=== PATIENT | female | born 1975 | race Caucasian/White ===

== ENCOUNTER 2024-05-16 16:48 | Emergency (ER) | payer OTHER, SELFPAY ==
[2024-05-16 17:11] VITALS: BP 131/75; PULSE 77; RESP 16; TEMP 36.4; O2SAT 100
--- NOTE | 2024-05-16 20:11 | ED_ITS ---
HPI - General Adult General Chief complaint: Extremity Injury, Upper Stated complaint: Left wrist pain Time Seen by Provider: 05/16/24 17:14 Source: patient, RN notes reviewed and old records reviewed Mode of arrival: ambulatory Limitations: no limitations History of Present Illness HPI narrative: 48-year-old female to [facility] with complaint left wrist pain for 2 weeks that is becoming progressively worse. Patient denies injury, surgical history, prior injury, numbness, tingling, weakness decreased ROM, swelling, pertinent medical history. Patient resting comfortably in no acute distress. Patient sta yury she recently was moved to the area does not have a primary care provider. Related Data Home Medications Medication Instructions Recorded Confirmed No Home Medications 05/16/24 05/16/24 Allergies Allergy/AdvReac Type Severity Reaction Status Date / Time prednisone Allergy Jittery Verified 05/16/24 17:10 Sulfa (Sulfonamide Allergy Hives Verified 05/16/24 17:09 Antibiotics) Review of Systems Review of Systems: All systems reviewed & are unremarkable except as noted in HPI and below Constitutional: Constitutional: Reports no additional constitutional c omplaints Eyes: Eyes: Reports no additional eye complaints ENT: Reports system reviewed and no additional complaints, except as documented Cardiovascular: Cardiovascular: Reports no additional cardiovascular complaints, Denies chest pain and Denies dyspnea Respiratory: Respiratory: Reports no additional respiratory complaints, Denies cough and Denies dyspnea Musculoskeletal: Musculoskeletal: Reports as per HPI, Reports deformity, Reports arthralgias ( left wrist), Denies joint swelling, Denies limited range of motion, Denies muscle weakness, Denies numbness and Denies radiating pain into limb Neurologic: Reports system reviewed and no additional complaints, except as documented Psychiatric: Psychiatric: Reports no additional psychiatric complaints PMFSH Comments At the time of my signature, I reviewed and agree with the nursing past medical, surgical, social, and family history. There is no relevant family history pertinent to the patient complaint. Exam Const: General: cooperative, healthy appearing, comfortable, no acute distress, well developed, alert, well groomed and well nourished Nutritional Appearance: well nourished Orientation/consciousness: patient oriented x3 Limitations: no limitations HENMT: Head: normal to inspection Ears: external ears normal Face/Nose/Sinus: Normal external nose present, Normal nares present, normal facial exam, No erythema and No edema Face and sinus: normal facial exam, no erythema and no edema Mouth: Yes Normal oral and palatal mucosa present Eyes: General: appearance normal, both eyes and all related structures Neck: Neck: normal visual inspection, full ROM and no meningeal signs Chest: Chest palpation & inspection: normal inspection of the chest Resp: Effort & Inspection: normal respiratory effort and able to speak in complete sentences Cardio: Jugular venous distension: no JVD Rate: regular rate Back/Spine/Pelvis: Cervical Spine: cervical ROM normal Skin: General skin exam: normal color, no rashes or lesions noted and turgor normal Neuro: General: patient oriented x3, gait normal, moves all extremities and no meningeal signs Speech: normal speech Gait exam (Neuro): Normal gait present Extrem: General: full ROM and capillary refill normal Left upper extremity: wrist normal ROM, normal vascular exam, normal Ranjit's test and Tinel's negative; no swelling, no unusual warmth, no abrasions, no lacerations, no ecchymosis, no crepitus, no deformity and Phalen's positive Psych: Appearance: grossly normal and well kempt Course Course Emergency Course: Some parts of this dictation were generated by voice recognition software and may contain typographical and/or grammatical inaccuracies. Level of Care: Express Care Visit Vital Signs Vital signs: Vital Signs Temperature 36.4 C L 05/16/24 17:11 Pulse Rate 77 05/16/24 17:11 Respiratory Rate 16 05/16/24 17:11 Blood Pressure 131/75 05/16/24 17:11 Pulse Oximetry 100 05/16/24 17:11 Oxygen Delivery Room Air 05/16/24 17:11 Temperature 36.4 C L 05/16/24 17:11 Pulse Rate 77 05/16/24 17:11 Respiratory Rate 16 05/16/24 17:11 Blood Pressure 131/75 05/16/24 17:11 Pulse Oximetry 100 05/16/24 17:11 Oxygen Delivery Room Air 05/16/24 17:11 reviewed Medical Decision Making MDM Narrative Medical decision making narrative: 48-year-old female to [facility] with complaint left wrist pain for 2 weeks that is becoming progressively worse. Patient denies injury, surgical history, prior injury, numbness, tingling, weakness decreased ROM, swelling, pertinent medical history. Patient resting comfortably in no acute distress. Patient states she recently was moved to the area does not have a primary care provider. Patient is sitting comfortably in exam room nontoxic in appearance. On exam, Phalen's test positive. Otherwise exam unremarkable. X-ray not indicated at this time. Patient encouraged to establish care with PCP. Patient appropriate for outpatient treatment and follow-up. Discharge instructions reviewed with patient, as well as provided in writing per nursing staff. The instructions also include specific and strict return/GO TO THE ER as well as f/u information. All questions have been answered, and the patient deny any further questions with discharge and discharge plan. Some parts of this dictation were generated by voice recognition software and may contain typographical and/or grammatical inaccuracies. Differential Diagnosis Differential Diagnosis: wrist pain, carpal tunnel syndrome, wrist fracture, wrist dislocation, bursitis, tendinitis, arthritis Vital Signs Vital Signs: Vital Signs Temperature 36.4 C L 05/16/24 17:11 Pulse Rate 77 05/16/24 17:11 Respiratory Rate 16 05/16/24 17:11 Blood Pressure 131/75 05/16/24 17:11 Pulse Oximetry 100 05/16/24 17:11 Oxygen Delivery Room Air 05/16/24 17:11 Temperature 36.4 C L 05/16/24 17:11 Pulse Rate 77 05/16/24 17:11 Respiratory Rate 16 05/16/24 17:11 Blood Pressure 131/75 05/16/24 17:11 Pulse Oximetry 100 05/16/24 17:11 Oxygen Delivery Room Air 05/16/24 17:11 Discharge Plan Discharge Clinical Impression: Left wrist pain Patient Disposition: Home, Self-Care Condition: Stable Instructions: Arthralgia (ED) Additional Instructions: Please review attached instructions regarding arthralgia and follow suggestions as tolerated Please get a wrist splint as discussed. Please use attached referral information to call Dr. Godinez tomorrow and schedule follow-up appointment For new or worsening symptoms please go directly to the emergency department Prescriptions: No Action No Home Medications Follow-up/Referrals: Yasmine Godinez MD [Physician] - PHYSICIAN,LEVEL VIAL [employer]AUGER [Primary Care Provider] -
== END 2024-05-16 17:56 | disposition home or self-care (01) ==
PROVIDERS: Emergency Provider Nurse Practitioner Family
DX: M25.532 Pain in left wrist (principal)
CPT/HCPCS: 99212; G0463